=== PATIENT | male | born 1955 | race Caucasian/White ===

== ENCOUNTER 2022-06-12 08:50 | Outpatient (CLI) | payer MEDICARE, BC, SELFPAY ==
[2022-06-12 13:51] LABS: Chloride* 103 mmol/L (96-114); Potassium* 4.3 mmol/L (3.6-5.1); Sodium* 135 mmol/L (135-149)
[2022-06-12 13:54] LABS: Blood Urea Nitrogen* 23 mg/dL (7-30); Calcium* 9.6 mg/dL (8.4-10.6); Carbon Dioxide* 29 mmol/L (20-32); Cholesterol* 233 mg/dL (90-199); Creatinine* 0.8 mg/dL (0.5-1.5); Estimated Glomerular Filt Rate 98 ml/min; Glucose* 101 mg/dL (60-115); Triglycerides* 49 mg/dL (40-149)
[2022-06-12 13:55] LABS: HDL Cholesterol* 74 mg/dL (>=40); LDL Cholesterol Calculated 149 mg/dL (<100)
[2022-06-12 14:25] LABS: PSA Screen* 0.88 ng/mL (0.10-4.00)
== END 2022-06-12 08:51 | disposition home or self-care (01) ==
PROVIDERS: PCP Family Medicine; Visit Provider Family Medicine
DX: Z00.00 Encounter for general adult medical examination without abnormal findings (principal); E78.5 Hyperlipidemia, unspecified; I10 Essential (primary) hypertension; Z12.5 Encounter for screening for malignant neoplasm of prostate
CPT/HCPCS: 80048; 80061; 84153